=== PATIENT | female | born 1985 ===

== ENCOUNTER 2019-07-24 13:07 | Outpatient (CLI) | payer OTHER ==
--- NOTE | 2019-07-24 14:27 | ULT ---
THYROID ULTRASOUND: Date: 07/24/2019 HISTORY: Thyroid nodule. COMPARISON: None. FINDINGS: Real-time imaging of the right and left lobes of the gland were performed. The right lobe measures 1. 6 x 1.8 x 5.4 cm. The left lobe measures 1.3 x 1.3 x 5.3 cm. Small subcentimeter colloid-type cysts a re seen bilaterally. No solid nodules. IMPRESSION: Small, subcentimeter, colloid cysts. POS: [facility]
== END 2019-07-24 13:08 | disposition home or self-care (01) ==
LOC: BICULT 13:07
PROVIDERS: ATTEND Internal Medicine Endocrinology, Diabetes & Metabolism
DX: E04.1 Nontoxic single thyroid nodule (principal)
CPT/HCPCS: 76536